=== PATIENT | male | born 1995 ===

== ENCOUNTER 2017-09-20 07:47 | Emergency (ER) | payer OTHER, BC ==
[2017-09-20] MEDS ORDERED: Midazolam 1 MG/ML 5 ML SDV IVPUSH ONE (08:33)
[2017-09-20] MEDS ORDERED: Sodium Chloride 0.9% 10 ML Syringe FLUSH PRN (08:33)
[2017-09-20] MEDS ORDERED: fentaNYL 100 MCG/2 ML SDV IVPUSH ONE (08:33)
--- NOTE | 2017-09-20 08:34 | EDM.PDOC ---
ED HPI GENERAL MEDICAL PROBLEM - General Chief Complaint: Lower Extremity Injury/Pain Stated Complaint: NAIL IN L FOOT Time Seen by Provider: 09/20/17 08:01 Source of Information: Reports: Patient History Limitations: Reports: No Limitations - History of Present Illness INITIAL COMMENTS - FREE TEXT/NARRATIVE: 22y/o M c/o nail embedded in left foot. Was working with a nail gun and accidentally shot nail into left middle toe. Nail traveled through the top of his shoe. Moderate pain, sharp, worse with movement. No numbness. No bleeding through the shoe. Denies additional injury. Left Feet Pain Score (Numeric/FACES): 10 - Related Data Allergies Allergy/AdvReac Type Severity Reaction Status Date / Time cephalexin Allergy Rash Verified 09/20/17 08:01 gluten AdvReac Headache Verified 09/20/17 08:39 Home Meds: Home Meds Amoxicillin/Potassium Clav [Augmentin 875-125 Tablet] 1 each PO BID #14 tablet 09/20/17 [Rx] Ibuprofen 800 mg PO TID PRN #40 tablet 09/20/17 [Rx] Novolog Pump. 1 dose SUBCUT DAILY 09/20/17 [History] oxyCODONE 5 mg PO QID PRN #12 tab 09/20/17 [Rx] Past Medical History Endocrine/Metabolic History: Reports: Diabetes, Type I - Past Surgical History GI Surgical History: Reports: Appendectomy Social & Family History - Tobacco Use Smoking Status *Q: Never Smoker - Caffeine Use Caffeine Use: Reports: Coffee, Energy Drinks, Soda - Recreational Drug Use Recreational Drug Use: No Review of Systems - Review of Systems Review Of Systems: See Below Constitutional: Reports: No Symptoms Respiratory: Reports: No Symptoms Cardiovascular: Reports: No Symptoms GI/Abdominal: Reports: No Symptoms Musculoskeletal: Reports: Foot Pain Skin: Reports: Wound Neurological: Reports: No Symptoms ED EXAM, GENERAL - Physical Exam Exam: See Below Exam Limited By: No Limitations General Appearance: Alert, WD/WN, No Apparent Distress Eye Exam: Bilateral Eye: Normal Inspection Nose: Normal Inspection Throat/Mouth: Normal Inspection, Normal Voice Head: Atraumatic, Normocephalic Neck: Normal Inspection Respiratory/Chest: No Respiratory Distress Extremities: Other (L foot: nail foreign body goes through superior aspect of patient's shoe and is apparently lodged in the foot. Unable to remove shoe at this time due to nail tacking it to the foot and due to severe pain with manipulation of the shoe. ) Neurological: Alert, Oriented, Normal Cognition Psychiatric: Normal Affect, Normal Mood Skin Exam: Warm, Dry, Intact, Normal Color, No Rash ED TRAUMA EXTREMITY PROCEDURES - Foreign Body Removal Indication:: Construction nail removal from L foot Consent Obtained: Patient Performing Doctor:: Analia Torrse Anesthesia Type: Moderate Sedation Complications:: No Comments:: Sedated with ketamine. After patient was comfortable, shoe was removed after cutting around it with trauma ernestine. Nail was then removed with traction. Wound was copiously irrigated with high pressure irrigation with normal saline. ED PROCEDURAL SEDATION - Pre Procedure Indications: other (foreign body removal ) Preparations: procedure explained, consent signed, oxygen, continuous pulse oximeter, suction, continuous clinical research monitor, constant attendance - Physical Exam Airway: normal anatomy Cardiovascular: normal heart sounds Respiratory: normal breath sounds Neurological: alert, responsive, NAD Meilampati Classification: 1 (soft palate, anterior/posterior tonsillar pillars , uvula visible) - Procedure Sedation Sedation: versed (parenteral), ketamine ASA Classification: 1 (Normal healthy patient) - Intra Procedure Condition during procedure: moderately sedated Complications: none Reversal: none - Post Procedure Condition after procedure: alert, NAD, responds to verbal stimuli - Discharge Condition Patient returned to pre-procedure baseline: Yes Alert prior to discharge: Yes Ambulatory with assistance: Yes Vital signs normal: Yes Time spent with sedated patient: 20 min Course - Vital Signs Last Recorded V/S: Last Vital Signs Temp 36.6 C 09/20/17 08:02 Pulse 96 09/20/17 08:02 Resp 18 09/20/17 08:02 BP 165/102 H 09/20/17 08:02 Pulse Ox 100 09/20/17 08:02 - Orders/Labs/Meds Orders: Active Orders 24 hr Category Date Time Status Peripheral IV Care [RC] . DIRECTED Care 09/20/17 08:33 Active Peripheral IV Care [RC] . DIRECTED Care 09/20/17 08:33 Active DME for Discharge [COMM] Stat Oth 09/20/17 10:13 Ordered Peripheral IV Insertion Adult [OM.PC] Routine Oth 09/20/17 08:33 Ordered Meds: Medications Discontinued Medications Generic Name Dose Route Start Last Admin Trade Name Freq PRN Reason Stop Dose Admin Fentanyl 100 mcg 08/07/18 08:33 Sublimaze IVPUSH 09/20/17 08:34 ONETIME ONE Piperacillin Sod/Tazobactam 100 mls @ 200 mls/hr 09/20/17 10:12 09/20/17 10: 26 Sod 4.5 gm/ Sodium Chloride IV 09/20/17 10:41 200 mls/hr ONETIME ONE Administration Ketamine HCl 100 mg 09/20/17 08:36 09/20/17 09:10 Ketalar IV 09/20/17 08:37 50 mg ONETIME ONE Administration Ketamine HCl 25 mg 09/20/17 09:12 09/20/17 09:13 Ketalar IV 09/20/17 09:13 25 mg ONETIME ONE Administration Ketamine HCl 25 mg 09/20/17 09:14 Ketalar IV 09/20/17 09:15 ONETIME ONE Ketamine HCl 25 mg 09/20/17 09:22 09/20/17 09:23 Ketalar IV 09/20/17 09:23 25 mg ONETIME ONE Administration Midazolam HCl 5 mg 09/20/17 08:33 09/20/17 09:00 Versed 1 Mg/Ml IVPUSH 09/20/17 08:34 4 mg ONCALL ONE Administration Ondansetron HCl 4 mg 09/20/17 08:50 09/20/17 08:57 Zofran IVPUSH 09/20/17 08:51 4 mg ONETIME ONE Administration Ondansetron HCl 4 mg 09/20/17 10:58 09/20/17 11:05 Zofran IVPUSH 09/20/17 10:59 4 mg ONETIME ONE Administration Oxycodone/Acetaminophen 1 tab 09/20/17 11:04 09/20/17 11:11 Percocet 325-5 Mg PO 09/20/17 11:05 1 tab ONETIME ONE Administration Sodium Chloride 10 ml 09/20/17 08:33 09/20/17 08:58 Saline Flush FLUSH 10 ml ASDIRECTED PRN Administration Keep Vein Open - Re-Assessments/Exams Free Text/Narrative Re-Assessment/Exam: 09/20/17 13:33 Upon reexamination after nail removal, patient has puncture wound at the base of the L third toe that appears to go through the base of the nail bed. No bleeding at this time. Distal motor/sensation intact. Wound bandaged. Initial XR foot showed nail foreign body through base of 3rd toe. Post-procedure x-ray showed a fracture through the 3rd phalanx. Will treat with sulema taping. Patient is at higher risk of infection given puncture wound through shoe ( superior aspect, not plantar aspect) and history of diabetes. Given zosyn here, will dc on Augmentin. Discussed need for wound check in 2 days, and strict return precautions for signs of infection. Departure - Departure Time of Disposition: 11:02 Disposition: Refer to Observation Clinical Impression: Foreign body foot/toe Toe fracture, left Qualifiers: Encounter type: initial encounter Toe: lesser toe Fracture type: closed Phalanx : proximal Fracture alignment: nondisplaced Qualified Code(s): S92.515A - Nondisplaced fracture of proximal phalanx of left lesser toe(s), initial encounter for closed fracture Puncture wound of foot Qualifiers: Encounter type: initial encounter Laterality: left Qualified Code(s): S91.332A - Puncture wound without foreign body, left foot, initial encounter - Discharge Information Prescriptions: Amoxicillin/Potassium Clav [Augmentin 875-125 Tablet] 1 each PO BID #14 tablet Ibuprofen 800 mg PO TID PRN #40 tablet PRN Reason: Pain oxyCODONE 5 mg PO QID PRN #12 tab PRN Reason: Pain Instructions: Puncture Wound, [id number] Referrals: PCP,Not In Area [Primary Care Provider] - Forms: ED Department Discharge Additional Instructions: 1. Take Augmentin as prescribed to help prevent infection. 2. Take ibuprofen or acetaminophen for pain. Take oxycodone as needed for severe pain. No driving or working while taking oxycodone as it could cause sleepiness or confusion. 3. Follow-up at the walk-in clinic for a wound check in 2 days. Call [phone] if you like to schedule here. 4. Return to the emergency department as needed for any sign of infection, such as severe pain, swelling, redness, or pus in the wound. 5. Your toe is broken. Sulema tape toe and wear hard soled shoe until you can walk without pain. - My Orders Last 24 Hours: My Active Orders 09/20/17 08:33 Peripheral IV Care [RC] . DIRECTED Peripheral IV Care [RC] . DIRECTED Peripheral IV Insertion Adult [OM.PC] Routine 09/20/17 10:13 DME for Discharge [COMM] Stat - Assessment/Plan Last 24 Hours: My Active Orders 09/20/17 08:33 Peripheral IV Care [RC] . DIRECTED Peripheral IV Care [RC] . DIRECTED Peripheral IV Insertion Adult [OM.PC] Routine 09/20/17 10:13 DME for Discharge [COMM] Stat
[2017-09-20] MEDS ORDERED: Ketamine 500 mg/10 ML MDV IV ONE ×4 (08:36→09:22)
[2017-09-20] MEDS ORDERED: Ondansetron 4 MG/2 ML SDV IVPUSH ONE ×2 (08:50→10:58)
--- NOTE | 2017-09-20 09:09 | CR ---
Left foot: Four views of the left foot were obtained. Comparison: No previous study. Metallic nail is projected through a shoe into the third toe. Multiple scattered linear opacities are seen which appear outside the patient. Multiple small radiopacities are also seen which appear outside the patient. No discrete bony abnormality is appreciated although the distal phalanx of the third toe not well seen due to overlapping nail. Impression: 1. Metallic nail within the third toe. 2. Multiple overlying opacities slightly limiting the study. 3. No definite fracture is seen although nail obscures a portion of the distal phalanx of the third toe. Diagnostic code #3
--- NOTE | 2017-09-20 09:57 | CR ---
Left foot: Four views of the left foot were obtained. Comparison: Prior left foot exam performed earlier on the same day (8 AM). Previous nail has been removed. Fracture is identified within the distal phalanx of the third toe. Alignment remains close to anatomic. No additional bony abnormality is seen. Impression: 1. Distal phalanx fracture within the third toe remaining close to anatomic in alignment. 2. Metallic nail has been removed. Diagnostic code #3
[2017-09-20] MEDS ORDERED: Piperacillin/Tazobactam 4.5 GM in Sodium Chloride 0.9% 100 ML IV ONE (10:12)
[2017-09-20] MEDS ORDERED: oxyCODONE 5 MG Tab PO ONE (10:58)
[2017-09-20] MEDS ORDERED: Acetaminophen/oxyCODONE 325-5 MG Tab PO ONE (11:04)
== END 2017-09-20 11:39 | disposition other institution (70) ==
LOC: JD.ED 07:47
DX: S92.532A Displaced fracture of distal phalanx of left lesser toe(s), initial encounter for closed fracture (principal); S92.515A Nondisplaced fracture of proximal phalanx of left lesser toe(s), initial encounter for closed fracture; E10.9 Type 1 diabetes mellitus without complications; Z91.018 Allergy to other foods; Z88.1 Allergy status to other antibiotic agents; W29.4XXA Contact with nail gun, initial encounter
CPT/HCPCS: 20520; 28190; 73630-26-LT; 73630-LT; 96365; 96375; 96376; 99152; 99153; 99284; 99284-25; A9270-GY; J2250; J2405; J2543; J7030; J7050